=== PATIENT | male | born 1940 ===

== ENCOUNTER 2018-06-12 23:18 | Emergency (ER) | payer BC, MEDICARE ==
--- NOTE | 2018-06-12 23:46 | ED PDOC ---
Arrival/HPI - General Chief Complaint: Back Pain Time Seen by Provider: 06/12/18 23:34 Historian: Patient, Family - History of Present Illness Narrative History of Present Illness (Text): 06/12/18 23:44 77 y/o male, no significant pmh, nkda, bib son, c/o lower back pain started last night with no fall or trauma. Aching pain, non-radiating, moderate to severe pain, no abdominal or pelvic pain, no urinary or bowel incontinence/ retention, no recent traveling, no night sweat, no dizziness, no change in vision, no numbness or tingling, no URI symptoms, no other medical or psychological complaints. Past Medical History - Provider Review Nursing Documentation Reviewed: Yes - Infectious Disease Hx of Infectious Diseases: None - Cardiac Hx Cardiac Disorders: No (pt denies) Other/Comment: rheumatic fever in childhood. - Psychiatric Hx Substance Use: No - Anesthesia Hx Anesthesia: No Family/Social History - Physician Review Nursing Documentation Reviewed: Yes Family/Social History: Unknown Family HX Smoking Status: Never Smoked Hx Alcohol Use: No Hx Substance Use: No Allergies/Home Meds Allergies/Adverse Reactions: Allergies No Known Allergies Allergy (Verified 06/12/18 23:33) Review of Systems - Review of Systems Constitutional: absent: Fatigue, Fevers Eyes: absent: Vision Changes ENT: absent: Hearing Changes Respiratory: absent: SOB, Cough Cardiovascular: absent: Chest Pain Gastrointestinal: absent: Abdominal Pain, Nausea, Vomiting Musculoskeletal: Back Pain. absent: Arthralgias, Neck Pain, Joint Swelling, Myalgias Skin: absent: Rash, Pruritis Neurological: absent: Headache, Dizziness Psychiatric: absent: Anxiety, Depression, Suicidal Ideation Physical Exam Vital Signs Reviewed: Yes Vital Signs Temp Pulse Resp BP Pulse Ox 06/12/18 23:47 98.1 F 06/12/18 23:30 100.1 F H 83 16 102/46 L 97 Temperature: Afebrile Pulse: Regular Respiratory Rate: Normal Appearance: Positive for: Well-Appearing, Non-Toxic Pain Distress: Moderate Mental Status: Positive for: Alert and Oriented X 3 - Systems Exam Head: Present: Atraumatic, Normocephalic Pupils: Present: PERRL Extroacular Muscles: Present: EOMI Conjunctiva: Present: Normal Mouth: Present: Moist Mucous Membranes Neck: Present: Normal Range of Motion, Trachea Midline. No: Meningeal Signs, MIDLINE TENDERNESS, Paraspinal Tenderness, Lymphadenopathy Respiratory/Chest: Present: Clear to Auscultation, Good Air Exchange. No: Respiratory Distress, Accessory Muscle Use Cardiovascular: Present: Regular Rate and Rhythm, Normal S1, S2. No: Murmurs Abdomen: No: Tenderness, Distention, Peritoneal Signs, Rebound, Guarding Back: Present: Normal Inspection, Paraspinal Tenderness (lt. paraspinal). No: CVA Tenderness, Midline Tenderness, Pain with Leg Raise, Decubitus Ulcer Upper Extremity: Present: Normal Inspection, Normal ROM, NORMAL PULSES, Neurovascularly Intact. No: Cyanosis, Edema, Deformity Lower Extremity: Present: Normal Inspection, Normal ROM, Neurovascularly Intact , Capillary Refill < 2 s. No: Edema, Tenderness, Swelling, Deformity Neurological: Present: GCS=15, CN II-XII Intact, Speech Normal, Motor Func Grossly Intact, Gait Normal, Memory Normal Skin: Present: Warm, Dry, Normal Color. No: Rashes Psychiatric: Present: Alert, Oriented x 3, Normal Insight, Normal Concentration Medical Decision Making ED Course and Treatment: 06/12/18 23:50 -LS spine xray -UA -Percocet/lidoderm patch -Observe and reassess 06/13/18 00:51 -Xray show: First degree spondylolisthesis L4-L5. Generalized osteopenia. Otherwise negative examination -Pt. feels much better, walking around, no focal neurological deficits. -UA show no UTI -I checked the njrx report show No patient identified that matches the current search criteria. Please review the criteria or expand the date range. -Discharge home with lidoderm, percocet, heat compression, avoid sexual activities or exercise/gym, return to the ER for any new or worsening signs or symptoms. - Lab Interpretations Lab Results: Lab Results 06/13/18 00:01: Urine Color Yellow, Urine Appearance Cloudy, Urine pH 6.5, Ur Specific Powers >= 1.030, Urine Protein 100 H, Urine Glucose (UA) 100 H, Urine Ketones Trace H, Urine Blood Negative, Urine Nitrate Negative, Urine Bilirubin Negative, Urine Urobilinogen 2.0 H, Ur Leukocyte Esterase Negative, Urine RBC 0 - 2, Urine WBC Negative, Ur Epithelial Cells 4 - 5, Urine Bacteria Few, Urine Other Usperm I have reviewed the lab results: Yes - RAD Interpretation Radiology Orders: 06/12/18 23:49 LS SPINE WITH OBL > 18 YRS OLD [RAD] Stat FINDINGS: Vertebrae: First degree spondylolisthesis L4-L5 there is generalized osteopenia. Vertebral height is preserved. Soft tissues: Normal. IMPRESSION: First degree spondylolisthesis L4-L5 Generalized osteopenia. Otherwise negative examination Thank you for allowing us to participate in the care of your patient. Dictated and Authenticated by: Jesus Hernández MD 06/13/2018 12:32 AM Eastern Time ([place] & [place]) Digital Project Manager: Radiologist - Medication Orders Current Medication Orders: Discontinued Medications Lidocaine (Lidoderm) 1 ea TD STAT STA Stop: 06/12/18 23:50 Last Admin: 06/12/18 23:58 Dose: 1 ea MAR Transdermal Patch Site Document 06/12/18 23:58 CNR (Rec: 06/12/18 23:58 CNR [id number]) Transdermal Patch Site Transdermal Patch Site Left Lower Back Oxycodone/Acetaminophen (Percocet 5/325 Mg Tab) 1 tab PO STAT STA Stop: 06/12/18 23:50 Last Admin: 06/12/18 23:58 Dose: 1 tab MAR Pain Assessment Document 06/12/18 23:58 CNR (Rec: 06/12/18 23:59 CNR [id number]) Pain Reassessment Is this a pain reassessment? No - PA / MOLDER APPRENTICE / Resident Statement / has reviewed & agrees with the documentation as recorded. Disposition/Present on Arrival - Present on Arrival Any Indicators Present on Arrival: No History of DVT/PE: No History of Uncontrolled Diabetes: No Urinary Catheter: No History of Decub. Ulcer: No History Surgical Site Infection Following: None - Disposition Have Diagnosis and Disposition been Completed?: Yes Diagnosis: Spondylolisthesis, Low back pain Disposition: HOME/ ROUTINE Disposition Time: 00:55 Patient Plan: Discharge Patient Problems: Current Active Problems Problem Status Onset Low back pain Acute Spondylolisthesis Acute Condition: IMPROVED Additional Instructions: -Discharge home with lidoderm, percocet, cane, heat compression, avoid sexual activities or exercise/gym, return to the ER for any new or worsening signs or symptoms. Prescriptions: Lidocaine 5% [Lidoderm] 1 patch TP DAILY #14 patch oxyCODONE/Acetaminophen [Percocet 5/325 mg Tab] 1 tab PO TID PRN #12 tab PRN Reason: Pain, Severe (8-10) Referrals: FAMILY PROVIDER,NO [Primary Care Provider] - Follow up with primary Caden Whitehead MD [Staff Provider] - Follow up with primary Forms: [employer] (Thai), WORK NOTE
[2018-06-12] MEDS ORDERED: Lidocaine 5% Patch TD STA (23:49)
[2018-06-12] MEDS ORDERED: Oxycodone/Acetaminophen 5/325 mg Tab PO STA (23:49)
[2018-06-13 00:13] VITALS: TEMP 98.1
[2018-06-13 00:15] LABS: PH,URINE 6.5 (4.7-8.0); URINE BILIRUBIN NEGATIVE (NEGATIVE); URINE BLOOD NEGATIVE (NEGATIVE); URINE GLUCOSE (UA) 100 mg/dL (NEGATIVE); URINE LEUKOCYTE ESTERASE NEGATIVE Leu/uL (NEGATIVE); URINE PROTEIN 100 mg/dL (<30 mg/dL)
[2018-06-13 00:36] LABS: URINE APPEARANCE CLOUDY (CLEAR); URINE COLOR YELLOW (YELLOW)
[2018-06-13 00:39] LABS: URINE RBC 0 - 2 /hpf (0-2)
[2018-06-13 00:40] LABS: URINE BACTERIA FEW (NEG); URINE WBC NEGATIVE /hpf (0-6)
[2018-06-13 01:12] VITALS: BP 110/70; PULSE 70; RESP 12; O2SAT 99
--- NOTE | 2018-06-13 11:24 | RAD ---
Date of service: 06/13/2018 PROCEDURE: Radiographs of the Lumbar Spine. HISTORY: lower back pain COMPARISON: No prior. FINDINGS: BONES: Normal alignment. No listhesis. No fracture. DISC SPACES: There is disc space narrowing and facet arthropathy at L4-5 and L5-S1 OTHER FINDINGS: None. IMPRESSION: There is disc space narrowing and facet arthropathy at L4-5 and L5-S1
== END 2018-06-13 01:11 | disposition home or self-care (01) ==
LOC: ED 23:18
DX: M54.5 Low back pain (principal); M43.16 Spondylolisthesis, lumbar region